=== PATIENT | male | born 1945 | race Caucasian/White ===

== ENCOUNTER 2022-06-03 18:17 | Emergency (ER) | payer MEDICARE, OTHER ==
[~2022-06-03] VITALS: Ht 170.2 cm; Wt 110.2 kg
--- NOTE | 2022-06-03 19:12 | NUR ---
BLOOD DRAWN AND SENT TO LAB
--- NOTE | 2022-06-03 19:12 | NUR ---
IV ESTABLISHED. R FOREARM 20G
--- NOTE | 2022-06-03 19:13 | NUR ---
[employer] AT BEDSIDE
--- NOTE | 2022-06-03 19:18 | NUR ---
AVIAN KEEPER AT BEDSIDE
[2022-06-03] MEDS ORDERED: ACETAMINOPHEN ES 500 MG TABLET PO ONE (20:00)
[2022-06-03] MEDS ORDERED: ACETAMINOPHEN ES 500 MG TABLET ONE (20:05)
--- NOTE | 2022-06-03 20:05 | NUR ---
URINE COLLECTED AND SENT TO LAB
[2022-06-03 20:12] LABS: CALCIUM, SERUM 9.3 mg/dL (8.5-10.1); CARBON DIOXIDE 27 mmol/L (21-32); CHLORIDE 103 mmol/L (98-107); CREATININE 1.5 mg/dL (0.6-1.3); GLUCOSE 159 mg/dL (74-106); POTASSIUM 4.4 mmol/L (3.5-5.1); SODIUM SERUM 137 mmol/L (136-145); UREA NITROGEN, BLOOD 29 mg/dL (7-18)
[2022-06-03 20:18] LABS: BASOPHILS % (AUTO) 0.2 % (0.0-2.0); EOSINOPHILS % (AUTO) 0.2 % (0.0-6.0); HEMATOCRIT 51 % (39-51); HEMOGLOBIN 16.4 g/dL (13.5-17.5); LYMPHOCYTES # (AUTO) 0.4 K/uL (0.8-4.8); LYMPHOCYTES % (AUTO) 2.5 % (20.0-44.0); MEAN CORPUSCULAR HGB CONC 33 g/dl (31.0-36.0); MEAN CORPUSCULAR VOLUME 91 fL (80-96); MONOCYTES # (AUTO) 1.2 K/uL (0.1-1.30); MONOCYTES % (AUTO) 7.6 % (2.0-12.0); NEUTROPHILS # (AUTO) 13.9 K/uL (1.8-8.9); NEUTROPHILS % (AUTO) 89.5 % (43.0-81.0); PLATELET COUNT (AUTO) 162 K/uL (150-450); RED BLOOD CELL COUNT(AUTO) 5.52 MIL/uL (4.5-6.0); WHITE BLOOD COUNT (AUTO) 15.6 K/uL (4.3-11.0)
[2022-06-03 20:24] LABS: ALANINE AMINOTRANSFERASE 26 U/L (12-78); ALBUMIN 3.4 g/dL (3.4-5.0); ALKALINE PHOSPHATASE 112 U/L (46-116); ASPARTATE AMINOTRANSFERASE 17 U/L (15-37); BILIRUBIN,DIRECT 0.5 mg/dL (0.0-0.2); BILIRUBIN,TOTAL 1.7 mg/dL (0.2-1.0); TOTAL PROTEIN, SERUM 7.2 g/dL (6.4-8.2)
[2022-06-03 20:48] LABS: BILIRUBIN,URINE NEGATIVE (NEGATIVE); COLOR,URINE YELLOW (YELLOW); LEUKOCYTE ESTERASE ,URINE NEGATIVE (NEGATIVE); NITRITE, URINE NEGATIVE (NEGATIVE); PROTEIN,URINE 2+ mg/dl (NEGATIVE); UGLUCOSE NEGATIVE (NEGATIVE)
[2022-06-03 20:59] LABS: RBC,URINE 51-80 /HPF (0-2); WBC,URINE 0-2 /HPF (0-3)
[2022-06-03 21:00] LABS: BACTERIA,URINE None seen /HPF (None Seen); SQUAMOUS EPITHELIAL CELL,UR 0-2 /HPF (None Seen)
[2022-06-03] MEDS ORDERED: IV NS 0.9% 1,000 ML BAG IV ONE (21:30)
[2022-06-03] MEDS ORDERED: LEVO750T46 PO (22:53)
--- NOTE | 2022-06-03 23:09 | NUR ---
MD SPOKE TO PT AND PT BEING DISCHARGED IN STABLE CONDITION ASYMPTOMATIC. INSTRUCTED TO FOLLOW UP WITH SENIOR RD ENGINEER FOR THE PRE EXISITING CONDTION.
[2022-06-03 23:13] VITALS: BP 172/97
== END 2022-06-03 23:14 | disposition home or self-care (01) ==
LOC: ER 18:19
DX: R50.9 Fever, unspecified (principal); R41.0 Disorientation, unspecified; D72.829 Elevated white blood cell count, unspecified; I10 Essential (primary) hypertension; E11.9 Type 2 diabetes mellitus without complications
CPT/HCPCS: 99285; 96360; 70450; 71045; 93005; 87040 ×3; 85025; 80048; 83605; 80076; 81001; 36415; 84484; 83880; 87075; J7030